=== PATIENT | female | born 1990 | race African-American/Black ===

== ENCOUNTER 2016-11-20 16:58 | Emergency (ER) | payer OTHER ==
[~2016-11-20] VITALS: Ht 165.1 cm; Wt 56.7 kg
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
[~2016-11-20 16:58] MED LIST: ACETAMINOPHEN PO; AZITHROMYCIN250 MG PO; BENZONATATE PO; CLARITIN10 M2 PO; DICLOFENAC PO; FLEXERIL10 M1 PO; MOTRIN600 M2 PO; MUCINEX DM TABL1 BOX PO; NO MEDICATIONS; TUSSINEX PO; ZANAFLEX4 M1 PO; ZITHROMAX PO
== END 2016-11-20 20:36 | disposition home or self-care (01) ==
LOC: SED 16:58
DX: S29.012A Strain of muscle and tendon of back wall of thorax, initial encounter (principal); F17.200 Nicotine dependence, unspecified, uncomplicated; V49.40XA Driver injured in collision with unspecified motor vehicles in traffic accident, initial encounter; Y92.488 Other paved roadways as the place of occurrence of the external cause
CPT/HCPCS: 72072; 72100; 84703; 99284